=== PATIENT | female | born 1980 | race Hispanic/Latino ===

== ENCOUNTER 2019-04-23 12:53 | Outpatient (CLI) | payer OTHER ==
--- NOTE | 2019-04-23 14:06 | ULT ---
EXAM: COMPLETE OB ULTRASOUND GREATER THAN 14 WEEKS: 04/25/19 HISTORY: Size and dates. Single viable intrauterine fetus is noted in breech presentation. Placenta is anterior. Amniotic flui d is within normal limits. heart rate 142 beats per minute. Cervical length 4.8 cm. No evidence for placenta previa. anatomy: Visualized brain, four chamber heart, three vessel cord, stomach, bladder, kidneys, spine and e xtremity regions are unremarkable. biometry: BPD 5.8 cm - - 23 weeks, 5 days Head circumference 21.8 cm - - 23 weeks, 6 days Abdominal circumference 19.2 cm - - 23 weeks, 6 days Femur length 4.2 cm - - 22 weeks, 4 days IMPRESSION: Single viable intrauterine fetus at 23 weeks, 3 days with an ROMAN of 08/17/19. Estimated weight 6 29 grams at 16.5 percentile. Unremarkable viable IUP in breech presentation. POS: [facility]
== END 2019-04-23 12:54 | disposition home or self-care (01) ==
LOC: NAV ULT 12:53
PROVIDERS: ATTEND Family Medicine
DX: O09.92 Supervision of high risk pregnancy, unspecified, second trimester (principal); Z3A.23 23 weeks gestation of pregnancy
CPT/HCPCS: 76805